=== PATIENT | male | born 1935 | race Caucasian/White ===

== ENCOUNTER 2020-06-04 22:05 | Inpatient (IN) | payer MEDICARE ==
[~2020-06-04] VITALS: Ht 172.7 cm; Wt 73.9 kg
[2020-06-04 22:31] LABS: BASOPHILS % 0.2 % (0.0-1.0); EOSINOPHILS % 0.1 % (0.0-6.0); HEMATOCRIT 37.2 % (38.2-49.6); HEMOGLOBIN 12.1 g/dL (14.0-18.0); LYMPHOCYTES # (AUTO) 1.7 (1.0-3.2); LYMPHOCYTES % 10.9 % (18.0-39.1); MEAN CORPUSCULAR HGB CONC 32.5 g/dL (31-35); MEAN CORPUSCULAR VOLUME 92.3 fL (81-99); MONOCYTES # (AUTO) 1.3 (0.2-0.8); MONOCYTES % 7.8 % (4.4-11.3); NEUTROPHILS # (AUTO) 12.9 (2.1-6.9); NEUTROPHILS % 80.4 % (38.7-80.0); PLATELET COUNT 325 x10e3/uL (140-360); RED BLOOD COUNT 4.03 x10e6/uL (4.3-5.7); RED CELL DISTRIBUTION WIDTH 13.4 % (11.7-14.4)
[2020-06-04] MEDS ORDERED: CEFEPIME HCL 1GM 1 GM in SODIUM CHLORIDE 0.9% 50ML 50 ML IV ONE (22:45)
[2020-06-04 22:48] LABS: CLARITY,URINE SL CLOUDY (CLEAR); COLOR,URINE YELLOW (YELLOW); KETONES,URINE NEGATIVE (NEGATIVE); LEUKOCYTE ESTERASE ,URINE MODERATE (NEGATIVE); NITRITE,URINE POSITIVE (NEGATIVE); PROTEIN,URINE DIPSTICK NEGATIVE (NEGATIVE); URINE UROBILINOGEN 0.2 mg/dL (0.2 - 1)
[2020-06-04 22:51] LABS: ALBUMIN 3.5 g/dL (3.5-5.0); ALBUMIN/GLOBULIN RATIO 1.2 (0.8-2.0); ANION GAP 16.2 mmol/L (8-16); CALCIUM 8.1 mg/dL (8.4-10.2); CREATININE, SERUM 1.71 mg/dL (0.72-1.25); POTASSIUM 4.2 mmol/L (3.5-5.1)
[2020-06-04] MEDS ORDERED: SODIUM CHLORIDE 0.9% 50ML 50 ML ONE ×2 (22:51→23:43)
[2020-06-04] MEDS ORDERED: CEFEPIME HCL 1 GM VIAL ONE (22:51)
[2020-06-04 22:54] LABS: BACTERIA,URINE MODERATE /HPF; EPITHELIAL CELLS,URINE FEW /LPF; WBC,URINE (MAN) 21-50 /HPF (0-5)
[2020-06-04 22:58] LABS: CREATINE KINASE MB 1.7 ng/mL (0-5.0)
[2020-06-04] MEDS ORDERED: ONDANSETRON HCL INJ 2MG/ML 2ML 2 MG/ML VIAL IV STA (23:21)
[2020-06-04] MEDS ORDERED: IOPAMIDOL 370 MG/ML 200 ML INFUS..BTL INJ ONE (23:43)
[2020-06-05] MEDS ORDERED: ONDANSETRON HCL4 MG PO (03:29)
[2020-06-05] MEDS ORDERED: METOPROLOL SUCC25 MG PO (03:29)
[2020-06-05] MEDS ORDERED: LISINOPRIL2.5 MG PO (03:29)
[2020-06-05] MEDS ORDERED: FUROSEMIDE20 MG PO (03:29)
[2020-06-05] MEDS ORDERED: CEFTRIAXONE SOD 1 GM/50 ML BAG IV SCH (08:00)
[2020-06-05] MEDS: CEFTRIAXONE SOD 1 GM in SODIUM CHLORIDE 0.9% 50ML 50 ML IV SCH (08:26)
[2020-06-05 08:43] LABS: BASOPHILS % 0.3 % (0.0-1.0); EOSINOPHILS # (AUTO) 0.1 (0.0-0.4); EOSINOPHILS % 0.6 % (0.0-6.0); HEMATOCRIT 32.8 % (38.2-49.6); HEMOGLOBIN 10.7 g/dL (14.0-18.0); LYMPHOCYTES # (AUTO) 2.5 (1.0-3.2); LYMPHOCYTES % 21.4 % (18.0-39.1); MEAN CORPUSCULAR HGB CONC 32.6 g/dL (31-35); MEAN CORPUSCULAR VOLUME 91.9 fL (81-99); MONOCYTES # (AUTO) 1.6 (0.2-0.8); MONOCYTES % 13.2 % (4.4-11.3); NEUTROPHILS # (AUTO) 7.5 (2.1-6.9); NEUTROPHILS % 64.1 % (38.7-80.0); PLATELET COUNT 262 x10e3/uL (140-360); RED BLOOD COUNT 3.57 x10e6/uL (4.3-5.7); RED CELL DISTRIBUTION WIDTH 13.4 % (11.7-14.4)
[2020-06-05 09:03] LABS: CALCIUM 8.2 mg/dL (8.4-10.2); CREATININE, SERUM 1.33 mg/dL (0.72-1.25)
[2020-06-05 10:30] LABS: FERRITIN 107.13 ng/mL (21.81-274.66)
[2020-06-05 13:00] VITALS: BP 111/61
[2020-06-05 13:37] VITALS: BP 111/67
[2020-06-05] MEDS ORDERED: HYDRALAZINE HCL 20 MG/ML VIAL IV PRN (14:45)
[2020-06-05] MEDS ORDERED: ACETAMINOPHEN 325 MG TAB PO PRN (14:45)
[2020-06-05] MEDS ORDERED: ONDANSETRON HCL INJ 2MG/ML 2ML 2 MG/ML VIAL IV PRN (14:45)
[2020-06-05 16:38] VITALS: BP 145/65
[2020-06-05] MEDS ORDERED: IRON SUCROSE 100 MG in SODIUM CHLORIDE 0.9% 100 ML 100 ML IV ONE (18:00)
[2020-06-05] MEDS: SODIUM CHLORIDE 0.9% 1000ML 1,000 ML IV SCH (18:15)
[2020-06-05 19:43] VITALS: BP 123/86
[2020-06-05 19:48] VITALS: BP 123/86
[2020-06-05] MEDS ORDERED: ASPIRIN CHEW81 MG PO (20:13)
[2020-06-06] VITALS (8 sets, daily range): BP systolic 102–115; BP diastolic 46–82
[2020-06-06] MEDS: SODIUM CHLORIDE 0.9% 1000ML 1,000 ML IV SCH ×2 (02:51→13:55)
[2020-06-06 05:07] LABS: BASOPHILS % 0.6 % (0.0-1.0); EOSINOPHILS # (AUTO) 0.2 (0.0-0.4); EOSINOPHILS % 3.1 % (0.0-6.0); HEMATOCRIT 29.9 % (38.2-49.6); HEMOGLOBIN 9.6 g/dL (14.0-18.0); LYMPHOCYTES % 28.9 % (18.0-39.1); MEAN CORPUSCULAR HEMOGLOBIN 30.5 pg (28-32); MEAN CORPUSCULAR HGB CONC 32.1 g/dL (31-35); MEAN CORPUSCULAR VOLUME 94.9 fL (81-99); MONOCYTES % 13.6 % (4.4-11.3); NEUTROPHILS # (AUTO) 3.8 (2.1-6.9); NEUTROPHILS % 53.4 % (38.7-80.0); PLATELET COUNT 243 x10e3/uL (140-360); RED BLOOD COUNT 3.15 x10e6/uL (4.3-5.7); RED CELL DISTRIBUTION WIDTH 13.6 % (11.7-14.4)
[2020-06-06 05:29] LABS: ALANINE AMINOTRANSFERASE 12 IU/L (0-55); ALBUMIN 2.7 g/dL (3.5-5.0); ALKALINE PHOSPHATASE 41 IU/L (40-150); ANION GAP 11.2 mmol/L (8-16); BLOOD UREA NITROGEN 46 mg/dL (7-26); BUN/CREATININE RATIO 40 (6-25); CARBON DIOXIDE 24 mmol/L (22-29); CHLORIDE 110 mmol/L (98-107); CREATININE, SERUM 1.14 mg/dL (0.72-1.25); EST GLOMERULAR FILTRATION RATE > 60 ML/MIN (60-); GLUCOSE 98 mg/dL (74-118); POTASSIUM 4.2 mmol/L (3.5-5.1); SODIUM 141 mmol/L (136-145)
[2020-06-06] MEDS ORDERED: CEFTRIAXONE SOD 1 GM VIAL ONE (08:30)
[2020-06-06] MEDS: CEFTRIAXONE SOD 1 GM in SODIUM CHLORIDE 0.9% 50ML 50 ML IV SCH (08:31)
[2020-06-06] MEDS: METOPROLOL SUCCINATE 25 MG TAB XL PO SCH (08:31)
[2020-06-06] MEDS ORDERED: SODIUM CHLORIDE 0.9% 50ML 50 ML ONE (08:31)
[2020-06-06] MEDS ORDERED: FAMOTIDINE 20 MG TAB PO SCH ×2 (09:00→21:00)
[2020-06-06] MEDS ORDERED: ALBUTEROL/IPRATROPIUM 3 ML NEB NEB PRN (10:15)
[2020-06-06] MEDS: BENZONATATE 100 MG CAP PO PRN ×2 (10:30→15:27)
[2020-06-06] MEDS ORDERED: ONDANSETRON HCL 4 MG ORAL DISINTEGRATING TAB PO PRN (10:30)
[2020-06-06] MEDS: PANTOPRAZOLE SOD 40 MG TABEC PO SCH (16:21)
[2020-06-06] MEDS: CARBAMIDE PEROXIDE 15 ML BTL OT SCH (21:00)
[2020-06-07] VITALS: BP 103/59
[2020-06-07 04:00] VITALS: BP 111/68
[2020-06-07] MEDS: PANTOPRAZOLE SOD 40 MG TABEC PO SCH ×2 (08:30→16:30)
[2020-06-07] MEDS ORDERED: CEFTRIAXONE SOD 1 GM VIAL ONE (08:40)
[2020-06-07] MEDS ORDERED: SODIUM CHLORIDE 0.9% 50ML 50 ML ONE (08:43)
[2020-06-07] MEDS: CEFTRIAXONE SOD 1 GM in SODIUM CHLORIDE 0.9% 50ML 50 ML IV SCH (08:45)
[2020-06-07] MEDS: METOPROLOL SUCCINATE 25 MG TAB XL PO SCH (09:00)
[2020-06-07] MEDS: CARBAMIDE PEROXIDE 15 ML BTL OT SCH ×2 (09:00→13:00)
[2020-06-07] MEDS ORDERED: SODIUM CHLORIDE 0.9% 100 ML ONE (09:41)
[2020-06-07 09:59] VITALS: BP 119/67
[2020-06-07 14:29] VITALS: BP 119/67
[2020-06-07 14:42] VITALS: BP 125/68
[2020-06-07] MEDS ORDERED: FAMOTIDINE20 MG PO (14:49)
[2020-06-07] MEDS ORDERED: CIPRO500 MG PO (14:49)
[2020-06-07] MEDS ORDERED: EAR DROPS15 ML OT (14:49)
[2020-06-07 16:38] VITALS: BP 125/70
== END 2020-06-07 17:14 | disposition home or self-care (01) | DRG 872 ==
LOC: ER 22:10 → ERHOLD 06-05 02:18 → MED/SURG 06-05 12:12 → OBSVTOIN 06-06 11:39
PROVIDERS: ADMIT Internal Medicine; ATTEND Internal Medicine
PROC: 0CJS8ZZ Inspection of Larynx, Via Natural or Artificial Opening Endoscopic (ICD-10-PCS; principal; 2020-06-06)
DX: A41.9 Sepsis, unspecified organism (principal); N39.0 Urinary tract infection, site not specified; N17.9 Acute kidney failure, unspecified; E87.1 Hypo-osmolality and hyponatremia; K92.2 Gastrointestinal hemorrhage, unspecified; I10 Essential (primary) hypertension; I25.10 Atherosclerotic heart disease of native coronary artery without angina pectoris; D64.9 Anemia, unspecified; K21.9 Gastro-esophageal reflux disease without esophagitis; H61.20 Impacted cerumen, unspecified ear; B96.20 Unspecified Escherichia coli [E. coli] as the cause of diseases classified elsewhere; B96.89 Other specified bacterial agents as the cause of diseases classified elsewhere; Z20.822 Contact with and (suspected) exposure to COVID-19
CPT/HCPCS: 36415; 51700; 71045; 74177; 80048; 80053; 81001; 82550; 82553; 82607; 82728; 82746; 83540; 83605; 83690; 84466; 84484; 85025; 87040; 87086; 87186; 99284; G0378; J0692; J0696; J1756; J2405; J7030; J7050; Q9967; U0002

== ENCOUNTER 2021-04-18 03:28 | Emergency (ER) | payer MEDICARE ==
[~2021-04-18] VITALS: Ht 172.7 cm; Wt 73.9 kg
[~2021-04-18 03:28] MED LIST: ASPIRIN CHEW81 MG PO; CIPRO500 MG PO; EAR DROPS15 ML OT; FAMOTIDINE20 MG PO; FUROSEMIDE20 MG PO; LISINOPRIL2.5 MG PO; METOPROLOL SUCC25 MG PO; ONDANSETRON HCL4 MG PO
== END 2021-04-18 04:00 | disposition home or self-care (01) ==
LOC: ER 03:31
DX: Z46.6 Encounter for fitting and adjustment of urinary device (principal); I10 Essential (primary) hypertension; I25.10 Atherosclerotic heart disease of native coronary artery without angina pectoris; D64.9 Anemia, unspecified; Z86.718 Personal history of other venous thrombosis and embolism
CPT/HCPCS: 99282

== ENCOUNTER 2021-11-10 12:23 | Emergency (ER) | payer MEDICARE ==
[~2021-11-10] VITALS: Ht 172.7 cm; Wt 73.9 kg
[2021-11-10] MEDS ORDERED: ONDANSETRON HCL INJ 2MG/ML 2ML 2 MG/ML VIAL IV STA (12:50)
[2021-11-10] MEDS ORDERED: SODIUM CHLORIDE 0.9% 1000ML 1,000 ML IV STA ×2 (12:50→16:46)
[2021-11-10 13:11] LABS: BASOPHILS % 0.2 % (0.0-1.0); HEMATOCRIT 34.7 % (38.2-49.6); HEMOGLOBIN 10.6 g/dL (14.0-18.0); LYMPHOCYTES # (AUTO) 1.3 (1.0-3.2); LYMPHOCYTES % 8.2 % (18.0-39.1); MEAN CORPUSCULAR HEMOGLOBIN 26.3 pg (28-32); MEAN CORPUSCULAR HGB CONC 30.5 g/dL (31-35); MEAN CORPUSCULAR VOLUME 86.1 fL (81-99); MONOCYTES # (AUTO) 1.2 (0.2-0.8); MONOCYTES % 7.9 % (4.4-11.3); NEUTROPHILS # (AUTO) 12.7 (2.1-6.9); NEUTROPHILS % 83.1 % (38.7-80.0); PLATELET COUNT 282 x10e3/uL (140-360); RED BLOOD COUNT 4.03 x10e6/uL (4.3-5.7); RED CELL DISTRIBUTION WIDTH 14.8 % (11.7-14.4)
[2021-11-10] MEDS ORDERED: DIGOXIN INJ 0.25 MG/ML 2 ML AMP IV STA (13:27)
[2021-11-10] MEDS ORDERED: METOPROLOL TARTRATE INJ 1 MG/ML VIAL IV STA ×2 (13:27→16:55)
[2021-11-10] MEDS ORDERED: DILTIAZEM HCL 5 MG/ML 5 ML VIAL IV STA (13:27)
[2021-11-10 13:38] LABS: ALBUMIN 3.8 g/dL (3.5-5.0); ANION GAP 17.6 mmol/L (8-16); CALCIUM 10.1 mg/dL (8.4-10.2); CREATININE, SERUM 1.56 mg/dL (0.72-1.25); POTASSIUM 4.6 mmol/L (3.5-5.1)
[2021-11-10] MEDS ORDERED: PROMETHAZINE 25MG/ NS 50ML (IV) IV STA (13:43)
[2021-11-10] MEDS ORDERED: SODIUM CHLORIDE 0.9% 0 ML ONE (13:57)
[2021-11-10] MEDS ORDERED: IOPAMIDOL 370 MG/ML 100 ML INFUS..BTL INJ ONE (13:57)
[2021-11-10 14:12] LABS: CLARITY,URINE SL CLOUDY (CLEAR); COLOR,URINE YELLOW (YELLOW)
[2021-11-10 14:13] LABS: KETONES,URINE NEGATIVE (NEGATIVE); LEUKOCYTE ESTERASE ,URINE LARGE (NEGATIVE); NITRITE,URINE POSITIVE (NEGATIVE); PROTEIN,URINE DIPSTICK 2+ (NEGATIVE); URINE UROBILINOGEN 0.2 mg/dL (0.2 - 1)
[2021-11-10 14:25] LABS: BACTERIA,URINE MANY /HPF
[2021-11-10 14:26] LABS: RBC,URINE 0-5 /HPF (0-5)
[2021-11-10 14:29] LABS: TRIPLE PHOSPHATE CRYSTAL,UR RARE (FEW)
[2021-11-10] MEDS ORDERED: GADOBENATE DIMEGLUMINE 0 ML IV ONE (15:02)
[2021-11-10] MEDS ORDERED: METOPROLOL TARTRATE INJ 1 MG/ML VIAL IV PRN (15:15)
[2021-11-10] MEDS ORDERED: SODIUM CHLORIDE 0.9% 1000ML 1,000 ML IV SCH (15:15)
[2021-11-10] MEDS ORDERED: LORAZEPAM INJ 2 MG/ML VIAL IV PRN (15:15)
[2021-11-10] MEDS ORDERED: ONDANSETRON HCL INJ 2MG/ML 2ML 2 MG/ML VIAL IV PRN (15:15)
[2021-11-10 15:39] LABS: % IRON SATURATION 31 % (15-50); IRON 119 ug/dL (65-175); TOTAL IRON BINDING CAPACITY 389 ug/dL (261-478); TRANSFERRIN 278 mg/dL (174-364)
[2021-11-10] MEDS ORDERED: FENTANYL CITRATE/PF 100MCG/2 ML INJ IV ONE ×2 (18:15)
[2021-11-10] MEDS ORDERED: FENTANYL CITRATE/PF 100MCG/2 ML INJ ONE (18:24)
[2021-11-10] MEDS ORDERED: ACETAMINOPHEN 325 MG TAB PO ONE (19:00)
== END 2021-11-10 19:07 | disposition other institution (70) ==
LOC: ER 12:28
DX: R41.82 Altered mental status, unspecified (principal); A41.9 Sepsis, unspecified organism; N39.0 Urinary tract infection, site not specified; R10.13 Epigastric pain; D64.9 Anemia, unspecified; I10 Essential (primary) hypertension; I25.10 Atherosclerotic heart disease of native coronary artery without angina pectoris; Z20.822 Contact with and (suspected) exposure to COVID-19; R94.31 Abnormal electrocardiogram [ECG] [EKG]; Z86.718 Personal history of other venous thrombosis and embolism
CPT/HCPCS: 36415; 70450; 71045; 74174; 80053; 81001; 83540; 83605; 83690; 83880; 84466; 85025; 87040; 87086; 87186; 93005; 99284; C9113; J1160; J2405; J2543; J2550; J3010; J7030; Q9967; U0002; J7050

== ENCOUNTER 2022-03-20 14:56 | Inpatient (IN) | payer MEDICARE ==
[~2022-03-20] VITALS: Ht 172.7 cm; Wt 73.9 kg
[2022-03-20] MEDS ORDERED: ONDANSETRON HCL INJ 2MG/ML 2ML 2 MG/ML VIAL IV PRN (17:45)
[2022-03-20] MEDS ORDERED: Morphine 4mg INJECTION 4 MG/ML INJ IV PRN (17:45)
[2022-03-20 17:51] LABS: BASOPHILS # (AUTO) 0.1 (0.0-0.1); BASOPHILS % 0.2 % (0.0-1.0); HEMATOCRIT 40.9 % (38.2-49.6); HEMOGLOBIN 12.1 g/dL (14.0-18.0); LYMPHOCYTES # (AUTO) 1.1 (1.0-3.2); LYMPHOCYTES % 5.2 % (18.0-39.1); MEAN CORPUSCULAR HEMOGLOBIN 29.1 pg (28-32); MEAN CORPUSCULAR HGB CONC 29.6 g/dL (31-35); MEAN CORPUSCULAR VOLUME 98.3 fL (81-99); MONOCYTES # (AUTO) 1.4 (0.2-0.8); MONOCYTES % 6.5 % (4.4-11.3); NEUTROPHILS # (AUTO) 18.7 (2.1-6.9); NEUTROPHILS % 87.4 % (38.7-80.0); PLATELET COUNT 233 x10e3/uL (140-360); RED BLOOD COUNT 4.16 x10e6/uL (4.3-5.7); RED CELL DISTRIBUTION WIDTH 14.7 % (11.7-14.4)
[2022-03-20 17:56] LABS: CLARITY,URINE CLOUDY (CLEAR); COLOR,URINE ORANGE (YELLOW); LEUKOCYTE ESTERASE ,URINE LARGE (NEGATIVE); NITRITE,URINE NEGATIVE (NEGATIVE)
[2022-03-20 17:57] LABS: KETONES,URINE NEGATIVE (NEGATIVE); PROTEIN,URINE DIPSTICK 2+ (NEGATIVE); URINE UROBILINOGEN 0.2 mg/dL (0.2 - 1)
[2022-03-20 18:00] LABS: WBC,URINE (MAN) >50 /HPF (0-5)
[2022-03-20 18:01] LABS: BACTERIA,URINE MANY /HPF; EPITHELIAL CELLS,URINE RARE /LPF; RBC,URINE >50 /HPF (0-5)
[2022-03-20 18:11] LABS: ALBUMIN 3.3 g/dL (3.5-5.0); ALBUMIN/GLOBULIN RATIO 0.8 (0.8-2.0); ANION GAP 16.7 mmol/L (8-16); CALCIUM 9.3 mg/dL (8.4-10.2); CREATININE, SERUM 1.43 mg/dL (0.72-1.25); POTASSIUM 4.7 mmol/L (3.5-5.1)
[2022-03-20] MEDS ORDERED: SODIUM CHLORIDE 0.9% 1000ML 1,000 ML IV ONE (18:30)
[2022-03-20 20:30] VITALS: BP 112/67
[2022-03-20 22:11] VITALS: BP 112/67
[2022-03-20 22:45] VITALS: BP 112/67
[2022-03-21] VITALS (7 sets, daily range): BP systolic 101–129; BP diastolic 62–80
[2022-03-21] MEDS: SODIUM CHLORIDE 0.9% 1000ML 1,000 ML IV SCH ×2 (00:32→08:44)
[2022-03-21 06:43] LABS: BASOPHILS % 0.3 % (0.0-1.0); EOSINOPHILS # (AUTO) 0.2 (0.0-0.4); EOSINOPHILS % 1.5 % (0.0-6.0); HEMATOCRIT 33.3 % (38.2-49.6); HEMOGLOBIN 10.1 g/dL (14.0-18.0); LYMPHOCYTES # (AUTO) 1.5 (1.0-3.2); LYMPHOCYTES % 12.4 % (18.0-39.1); MEAN CORPUSCULAR HEMOGLOBIN 29.4 pg (28-32); MEAN CORPUSCULAR HGB CONC 30.3 g/dL (31-35); MEAN CORPUSCULAR VOLUME 97.1 fL (81-99); MONOCYTES # (AUTO) 1.2 (0.2-0.8); MONOCYTES % 9.9 % (4.4-11.3); NEUTROPHILS % 75.6 % (38.7-80.0); PLATELET COUNT 186 x10e3/uL (140-360); RED BLOOD COUNT 3.43 x10e6/uL (4.3-5.7); RED CELL DISTRIBUTION WIDTH 14.6 % (11.7-14.4)
[2022-03-21 06:59] LABS: ANION GAP 13.5 mmol/L (8-16); CALCIUM 8.2 mg/dL (8.4-10.2); CREATININE, SERUM 1.11 mg/dL (0.72-1.25); POTASSIUM 3.5 mmol/L (3.5-5.1)
[2022-03-21] MEDS ORDERED: ACETAMINOPHEN 325 MG TAB PO PRN (09:30)
[2022-03-21] MEDS ORDERED: CARVEDILOL3.125 MG PO (11:03)
[2022-03-21] MEDS ORDERED: OMEPRAZOLE40 MG PO (11:05)
[2022-03-21] MEDS ORDERED: OMEPRAZOLE20 M2 (11:05)
[2022-03-21] MEDS ORDERED: POTASSIUM CHLO10 ME1 PO (11:06)
[2022-03-21] MEDS ORDERED: GLUCOSAMINE &1 EACH PO (11:19)
[2022-03-21] MEDS ORDERED: REFRESH RELIEVA10 ML OU (11:21)
[2022-03-21] MEDS: ARTIFICIAL TEARS (OPTH) 15 ML BTL OU SCH ×2 (15:00→21:36)
[2022-03-21] MEDS: ALBUTEROL/IPRATROPIUM 3 ML NEB NEB PRN (15:04)
[2022-03-21] MEDS: CARVEDILOL 3.125 MG TAB PO SCH (17:12)
[2022-03-21] MEDS: FAMOTIDINE 20 MG TAB PO SCH (21:37)
[2022-03-22] VITALS (7 sets, daily range): BP systolic 115–146; BP diastolic 59–84
[2022-03-22 06:46] LABS: BASOPHILS # (AUTO) 0.1 (0.0-0.1); BASOPHILS % 0.6 % (0.0-1.0); EOSINOPHILS # (AUTO) 0.4 (0.0-0.4); HEMATOCRIT 32.2 % (38.2-49.6); HEMOGLOBIN 10.2 g/dL (14.0-18.0); LYMPHOCYTES # (AUTO) 1.2 (1.0-3.2); LYMPHOCYTES % 10.9 % (18.0-39.1); MEAN CORPUSCULAR HEMOGLOBIN 29.6 pg (28-32); MEAN CORPUSCULAR HGB CONC 31.7 g/dL (31-35); MEAN CORPUSCULAR VOLUME 93.3 fL (81-99); MONOCYTES # (AUTO) 1.2 (0.2-0.8); MONOCYTES % 10.9 % (4.4-11.3); NEUTROPHILS % 73.2 % (38.7-80.0); PLATELET COUNT 186 x10e3/uL (140-360); RED BLOOD COUNT 3.45 x10e6/uL (4.3-5.7); RED CELL DISTRIBUTION WIDTH 15.1 % (11.7-14.4)
[2022-03-22 07:19] LABS: ALBUMIN 2.5 g/dL (3.5-5.0); ALBUMIN/GLOBULIN RATIO 0.6 (0.8-2.0); ANION GAP 11.8 mmol/L (8-16); CALCIUM 8.3 mg/dL (8.4-10.2); CREATININE, SERUM 1.02 mg/dL (0.72-1.25); POTASSIUM 3.8 mmol/L (3.5-5.1)
[2022-03-22] MEDS: FUROSEMIDE 20 MG TAB PO SCH (08:55)
[2022-03-22] MEDS: ARTIFICIAL TEARS (OPTH) 15 ML BTL OU SCH ×3 (08:56→21:18)
[2022-03-22] MEDS: GLUCOSAMINE PO SCH (08:56)
[2022-03-22] MEDS: CHONDROITIN PO SCH (08:56)
[2022-03-22] MEDS: CARVEDILOL 3.125 MG TAB PO SCH ×2 (08:56→17:32)
[2022-03-22] MEDS ORDERED: METOPROLOL SUCCINATE 25 MG TAB XL PO SCH (09:00)
[2022-03-22] MEDS ORDERED: LINEZOLID 600 MG TAB PO ONE (10:30)
[2022-03-22] MEDS: FAMOTIDINE 20 MG TAB PO SCH (21:19)
[2022-03-23] VITALS (9 sets, daily range): BP systolic 91–126; BP diastolic 57–74
[2022-03-23] MEDS: ALBUTEROL/IPRATROPIUM 3 ML NEB NEB PRN ×3 (04:55→12:45)
[2022-03-23 05:41] LABS: BASOPHILS # (AUTO) 0.1 (0.0-0.1); BASOPHILS % 0.6 % (0.0-1.0); EOSINOPHILS # (AUTO) 0.7 (0.0-0.4); EOSINOPHILS % 7.2 % (0.0-6.0); HEMATOCRIT 31.8 % (38.2-49.6); HEMOGLOBIN 10.4 g/dL (14.0-18.0); LYMPHOCYTES # (AUTO) 1.9 (1.0-3.2); MEAN CORPUSCULAR HGB CONC 32.7 g/dL (31-35); MEAN CORPUSCULAR VOLUME 91.6 fL (81-99); MONOCYTES # (AUTO) 1.2 (0.2-0.8); MONOCYTES % 12.8 % (4.4-11.3); NEUTROPHILS # (AUTO) 5.3 (2.1-6.9); NEUTROPHILS % 58.1 % (38.7-80.0); PLATELET COUNT 197 x10e3/uL (140-360); RED BLOOD COUNT 3.47 x10e6/uL (4.3-5.7); RED CELL DISTRIBUTION WIDTH 14.7 % (11.7-14.4)
[2022-03-23 06:07] LABS: ANION GAP 14.5 mmol/L (8-16); CALCIUM 8.4 mg/dL (8.4-10.2); CREATININE, SERUM 0.97 mg/dL (0.72-1.25); POTASSIUM 3.5 mmol/L (3.5-5.1)
[2022-03-23] MEDS: POTASSIUM CHLORIDE 10MEQ EA PO SCH (08:34)
[2022-03-23] MEDS: FUROSEMIDE 20 MG TAB PO SCH (08:34)
[2022-03-23] MEDS: PANTOPRAZOLE SOD 40 MG TABEC PO SCH (08:34)
[2022-03-23] MEDS: CARVEDILOL 3.125 MG TAB PO SCH ×2 (08:34→17:18)
[2022-03-23] MEDS: ARTIFICIAL TEARS (OPTH) 15 ML BTL OU SCH ×3 (08:35→20:43)
[2022-03-23] MEDS: GLUCOSAMINE PO SCH (08:37)
[2022-03-23] MEDS: CHONDROITIN PO SCH (08:37)
[2022-03-23] MEDS: LINEZOLID 600 MG TAB PO SCH ×2 (12:00→20:43)
[2022-03-23] MEDS ORDERED: ONDANSETRON HCL 4 MG ORAL DISINTEGRATING TAB PO PRN (13:45)
[2022-03-23] MEDS: FAMOTIDINE 20 MG TAB PO SCH (20:43)
[2022-03-24] VITALS (9 sets, daily range): BP systolic 104–125; BP diastolic 49–81
[2022-03-24] MEDS: ALBUTEROL/IPRATROPIUM 3 ML NEB NEB PRN ×2 (02:10→19:20)
[2022-03-24] MEDS: LINEZOLID 600 MG TAB PO SCH ×2 (08:28→20:45)
[2022-03-24] MEDS: PANTOPRAZOLE SOD 40 MG TABEC PO SCH (08:28)
[2022-03-24] MEDS: POTASSIUM CHLORIDE 10MEQ EA PO SCH (08:28)
[2022-03-24] MEDS: ARTIFICIAL TEARS (OPTH) 15 ML BTL OU SCH ×3 (08:29→20:45)
[2022-03-24] MEDS: CARVEDILOL 3.125 MG TAB PO SCH ×2 (08:29→16:02)
[2022-03-24] MEDS: FUROSEMIDE 40 MG TAB PO SCH (08:29)
[2022-03-24] MEDS: CHONDROITIN PO SCH (08:30)
[2022-03-24] MEDS: GLUCOSAMINE PO SCH (08:30)
[2022-03-24] MEDS: FAMOTIDINE 20 MG TAB PO SCH (20:45)
[2022-03-25] MEDS: ALBUTEROL/IPRATROPIUM 3 ML NEB NEB PRN ×4 (01:00→18:55)
[2022-03-25 04:00] VITALS: BP 111/66
[2022-03-25 05:52] LABS: BASOPHILS % 0.6 % (0.0-1.0); EOSINOPHILS # (AUTO) 0.8 (0.0-0.4); EOSINOPHILS % 11.8 % (0.0-6.0); HEMATOCRIT 33.2 % (38.2-49.6); HEMOGLOBIN 10.1 g/dL (14.0-18.0); LYMPHOCYTES # (AUTO) 1.8 (1.0-3.2); LYMPHOCYTES % 25.7 % (18.0-39.1); MEAN CORPUSCULAR HGB CONC 30.4 g/dL (31-35); MEAN CORPUSCULAR VOLUME 95.4 fL (81-99); MONOCYTES # (AUTO) 0.9 (0.2-0.8); NEUTROPHILS # (AUTO) 3.4 (2.1-6.9); NEUTROPHILS % 48.6 % (38.7-80.0); PLATELET COUNT 204 x10e3/uL (140-360); RED BLOOD COUNT 3.48 x10e6/uL (4.3-5.7); RED CELL DISTRIBUTION WIDTH 14.6 % (11.7-14.4)
[2022-03-25 06:21] LABS: ANION GAP 12.7 mmol/L (8-16); CALCIUM 8.2 mg/dL (8.4-10.2); CREATININE, SERUM 1.16 mg/dL (0.72-1.25); POTASSIUM 3.7 mmol/L (3.5-5.1)
[2022-03-25 08:08] VITALS: BP 115/70
[2022-03-25 09:00] VITALS: BP 115/70
[2022-03-25] MEDS: PANTOPRAZOLE SOD 40 MG TABEC PO SCH (09:00)
[2022-03-25] MEDS: CHONDROITIN PO SCH (09:00)
[2022-03-25] MEDS: FUROSEMIDE 40 MG TAB PO SCH (09:00)
[2022-03-25] MEDS: GLUCOSAMINE PO SCH (09:00)
[2022-03-25] MEDS: LINEZOLID 600 MG TAB PO SCH ×2 (09:00→21:56)
[2022-03-25] MEDS: POTASSIUM CHLORIDE 10MEQ EA PO SCH (09:00)
[2022-03-25] MEDS: CARVEDILOL 3.125 MG TAB PO SCH ×2 (09:00→16:33)
[2022-03-25] MEDS: ARTIFICIAL TEARS (OPTH) 15 ML BTL OU SCH ×3 (09:33→21:56)
[2022-03-25 11:50] VITALS: BP 104/63
[2022-03-25 16:03] VITALS: BP 109/61
[2022-03-25 20:00] VITALS: BP 135/68
[2022-03-25] MEDS: FAMOTIDINE 20 MG TAB PO SCH (21:56)
[2022-03-26] VITALS (8 sets, daily range): BP systolic 106–137; BP diastolic 69–92
[2022-03-26] MEDS: ALBUTEROL/IPRATROPIUM 3 ML NEB NEB PRN ×4 (00:40→19:35)
[2022-03-26] MEDS: CHONDROITIN PO SCH (09:00)
[2022-03-26] MEDS: GLUCOSAMINE PO SCH (09:00)
[2022-03-26] MEDS: POTASSIUM CHLORIDE 10MEQ EA PO SCH (09:12)
[2022-03-26] MEDS: FUROSEMIDE 40 MG TAB PO SCH (09:12)
[2022-03-26] MEDS: LINEZOLID 600 MG TAB PO SCH (09:12)
[2022-03-26] MEDS: PANTOPRAZOLE SOD 40 MG TABEC PO SCH (09:12)
[2022-03-26] MEDS: CARVEDILOL 3.125 MG TAB PO SCH ×2 (09:12→17:00)
[2022-03-26] MEDS: ARTIFICIAL TEARS (OPTH) 15 ML BTL OU SCH ×3 (09:13→21:42)
[2022-03-26] MEDS: AMOXICILLIN 250 MG CAP PO SCH ×2 (14:49→21:43)
[2022-03-26] MEDS: FAMOTIDINE 20 MG TAB PO SCH (21:42)
[2022-03-27] VITALS (7 sets, daily range): BP systolic 107–136; BP diastolic 55–84
[2022-03-27] MEDS: AMOXICILLIN 250 MG CAP PO SCH ×3 (06:00→20:13)
[2022-03-27] MEDS: ALBUTEROL/IPRATROPIUM 3 ML NEB NEB PRN ×2 (06:40→18:50)
[2022-03-27] MEDS: ARTIFICIAL TEARS (OPTH) 15 ML BTL OU SCH ×3 (09:00→20:24)
[2022-03-27] MEDS: FUROSEMIDE 40 MG TAB PO SCH (09:00)
[2022-03-27] MEDS: CARVEDILOL 3.125 MG TAB PO SCH ×2 (09:00→16:11)
[2022-03-27] MEDS: CHONDROITIN PO SCH (09:00)
[2022-03-27] MEDS: GLUCOSAMINE PO SCH (09:00)
[2022-03-27] MEDS: POTASSIUM CHLORIDE 10MEQ EA PO SCH (09:00)
[2022-03-27] MEDS: PANTOPRAZOLE SOD 40 MG TABEC PO SCH (09:00)
[2022-03-27] MEDS ORDERED: SUGAMMADEX SODIUM 200 MG/2 ML VIAL IV ONE (12:06)
[2022-03-27] MEDS ORDERED: IOPAMIDOL 610MG/1ML 300 MG/ML VIAL IV ONE (12:19)
[2022-03-27] MEDS ORDERED: LIDOCAINE 2%/ EPINEPHRINE 20ML MDV ONE (12:56)
[2022-03-27] MEDS ORDERED: BUPIVACAINE HCL 0.5% INJ 30 ML VIAL INJ ONE (12:57)
[2022-03-27] MEDS ORDERED: DEXAMETHASONE SOD PHOS INJ 4 MG/ML SDV ONE (13:01)
[2022-03-27] MEDS ORDERED: METOCLOPRAMIDE HCL 10 MG/2ML VIAL ONE (13:01)
[2022-03-27] MEDS ORDERED: ETOMIDATE 2 MG/ML 10 ML INJ IV ONE (13:01)
[2022-03-27] MEDS ORDERED: LIDOCAINE HCL 2% LOCAL INJ 5 ML SDV VIAL INJ ONE (13:01)
[2022-03-27] MEDS ORDERED: SEVOFLURANE INHAL SOLN 250 ML PEN BTL ONE (13:01)
[2022-03-27] MEDS ORDERED: ROCURONIUM BROMIDE 10 MG/ML 5ML VIAL IV ONE (13:01)
[2022-03-27] MEDS ORDERED: ONDANSETRON HCL INJ 2MG/ML 2ML 2 MG/ML VIAL ONE (13:01)
[2022-03-27] MEDS ORDERED: POVIDONE IODINE 0.05% 0.05 % ML PO ONE (13:01)
[2022-03-27] MEDS ORDERED: MIDAZOLAM HCL 2 MG/2 ML VIAL ONE (13:18)
[2022-03-27] MEDS ORDERED: FENTANYL CITRATE/PF 100MCG/2 ML INJ ONE (13:18)
[2022-03-27] MEDS ORDERED: PHENAZOPYRIDINE HCL 100 MG TAB PO PRN (14:15)
[2022-03-27] MEDS ORDERED: ACETAMINOPHEN/CODEINE 300MG - 30MG TAB PO PRN (14:15)
[2022-03-27] MEDS: FAMOTIDINE 20 MG TAB PO SCH (20:13)
[2022-03-28] MEDS: AMOXICILLIN 250 MG CAP PO SCH ×3 (05:19→20:31)
[2022-03-28 05:22] LABS: BASOPHILS % 0.1 % (0.0-1.0); EOSINOPHILS % 0.1 % (0.0-6.0); HEMATOCRIT 37.5 % (38.2-49.6); HEMOGLOBIN 11.1 g/dL (14.0-18.0); LYMPHOCYTES % 12.7 % (18.0-39.1); MEAN CORPUSCULAR HGB CONC 29.6 g/dL (31-35); MEAN CORPUSCULAR VOLUME 97.9 fL (81-99); MONOCYTES # (AUTO) 0.6 (0.2-0.8); MONOCYTES % 7.7 % (4.4-11.3); NEUTROPHILS # (AUTO) 6.2 (2.1-6.9); NEUTROPHILS % 79.1 % (38.7-80.0); PLATELET COUNT 239 x10e3/uL (140-360); RED BLOOD COUNT 3.83 x10e6/uL (4.3-5.7); RED CELL DISTRIBUTION WIDTH 13.9 % (11.7-14.4)
[2022-03-28 05:27] VITALS: BP 128/90
[2022-03-28 05:46] LABS: ANION GAP 14.5 mmol/L (8-16); CALCIUM 8.8 mg/dL (8.4-10.2); CREATININE, SERUM 1.15 mg/dL (0.72-1.25); POTASSIUM 4.5 mmol/L (3.5-5.1)
[2022-03-28] MEDS: ALBUTEROL/IPRATROPIUM 3 ML NEB NEB PRN ×2 (07:30→19:35)
[2022-03-28 08:05] VITALS: BP 123/70
[2022-03-28] MEDS: CHONDROITIN PO SCH (09:00)
[2022-03-28] MEDS: GLUCOSAMINE PO SCH (09:00)
[2022-03-28] MEDS: PANTOPRAZOLE SOD 40 MG TABEC PO SCH (09:18)
[2022-03-28] MEDS: POTASSIUM CHLORIDE 10MEQ EA PO SCH (09:19)
[2022-03-28] MEDS: ARTIFICIAL TEARS (OPTH) 15 ML BTL OU SCH ×3 (09:19→20:31)
[2022-03-28] MEDS: CARVEDILOL 3.125 MG TAB PO SCH ×2 (09:19→17:00)
[2022-03-28] MEDS: FUROSEMIDE 40 MG TAB PO SCH (09:19)
[2022-03-28 10:25] VITALS: BP 123/70
[2022-03-28 12:00] VITALS: BP 103/62
[2022-03-28 16:27] VITALS: BP 112/83
[2022-03-28 20:00] VITALS: BP 136/74
[2022-03-28] MEDS: FAMOTIDINE 20 MG TAB PO SCH (20:31)
[2022-03-29] VITALS (7 sets, daily range): BP systolic 110–128; BP diastolic 64–77
[2022-03-29] MEDS: ALBUTEROL/IPRATROPIUM 3 ML NEB NEB PRN ×4 (02:25→19:25)
[2022-03-29] MEDS: AMOXICILLIN 250 MG CAP PO SCH ×3 (05:09→22:00)
[2022-03-29] MEDS: CHONDROITIN PO SCH (09:00)
[2022-03-29] MEDS: GLUCOSAMINE PO SCH (09:00)
[2022-03-29] MEDS: ARTIFICIAL TEARS (OPTH) 15 ML BTL OU SCH ×3 (09:00→20:32)
[2022-03-29] MEDS: POTASSIUM CHLORIDE 10MEQ EA PO SCH (09:00)
[2022-03-29] MEDS: PANTOPRAZOLE SOD 40 MG TABEC PO SCH (09:00)
[2022-03-29] MEDS: CARVEDILOL 3.125 MG TAB PO SCH ×2 (09:00→17:00)
[2022-03-29] MEDS: FUROSEMIDE 40 MG TAB PO SCH (09:00)
[2022-03-29] MEDS: FAMOTIDINE 20 MG TAB PO SCH (20:32)
[2022-03-29] MEDS ORDERED: NEOMYCIN/POLYMYXIN/BACITRACIN 15 GM TUBE TOP SCH (21:00)
[2022-03-30] VITALS: BP 122/82
[2022-03-30 00:32] VITALS: BP 118/77
[2022-03-30] MEDS: ALBUTEROL/IPRATROPIUM 3 ML NEB NEB PRN ×2 (01:10→06:56)
[2022-03-30 04:00] VITALS: BP 125/72
[2022-03-30] MEDS: AMOXICILLIN 250 MG CAP PO SCH (05:48)
[2022-03-30 08:14] VITALS: BP 133/94
[2022-03-30 09:00] VITALS: BP 133/94
[2022-03-30] MEDS: GLUCOSAMINE PO SCH (09:00)
[2022-03-30] MEDS: CHONDROITIN PO SCH (09:00)
[2022-03-30] MEDS: FUROSEMIDE 40 MG TAB PO SCH (09:48)
[2022-03-30] MEDS: ARTIFICIAL TEARS (OPTH) 15 ML BTL OU SCH (09:48)
[2022-03-30] MEDS: POTASSIUM CHLORIDE 10MEQ EA PO SCH (09:48)
[2022-03-30] MEDS: PANTOPRAZOLE SOD 40 MG TABEC PO SCH (09:48)
[2022-03-30] MEDS: CARVEDILOL 3.125 MG TAB PO SCH (09:49)
[2022-03-30 11:35] VITALS: BP 119/69
[2022-03-30] MEDS ORDERED: AUGMENTIN 500-1 EACH PO (12:23)
[2022-03-30] MEDS ORDERED: HIPREX1 GM PO (12:29)
== END 2022-03-30 13:45 | disposition home or self-care (01) | DRG 659 ==
LOC: ER 15:03 → ERHOLD 17:45 → MED/SURG2 21:15
PROVIDERS: ADMIT Internal Medicine; ATTEND Internal Medicine
PROC: 0T9B80Z Drainage of Bladder with Drainage Device, Via Natural or Artificial Opening Endoscopic (ICD-10-PCS; principal; 2022-03-27 12:18)
PROC: 0T788DZ Dilation of Bilateral Ureters with Intraluminal Device, Via Natural or Artificial Opening Endoscopic (ICD-10-PCS; 2022-03-27 12:18)
DX: T83.511A Infection and inflammatory reaction due to indwelling urethral catheter, initial encounter (principal); A41.9 Sepsis, unspecified organism; R65.20 Severe sepsis without septic shock; N17.9 Acute kidney failure, unspecified; Z16.21 Resistance to vancomycin; N39.0 Urinary tract infection, site not specified; N31.9 Neuromuscular dysfunction of bladder, unspecified; R33.9 Retention of urine, unspecified; R31.0 Gross hematuria; R31.29 Other microscopic hematuria; N31.2 Flaccid neuropathic bladder, not elsewhere classified; I44.7 Left bundle-branch block, unspecified; I48.91 Unspecified atrial fibrillation; K21.9 Gastro-esophageal reflux disease without esophagitis; B96.1 Klebsiella pneumoniae [K. pneumoniae] as the cause of diseases classified elsewhere; I12.9 Hypertensive chronic kidney disease with stage 1 through stage 4 chronic kidney disease, or unspecified chronic kidney disease; E11.22 Type 2 diabetes mellitus with diabetic chronic kidney disease; E87.6 Hypokalemia; N18.30 Chronic kidney disease, stage 3 unspecified; B95.2 Enterococcus as the cause of diseases classified elsewhere; I25.10 Atherosclerotic heart disease of native coronary artery without angina pectoris; R80.9 Proteinuria, unspecified; F95.9 Tic disorder, unspecified; R53.81 Other malaise; Q54.8 Other hypospadias; Z87.440 Personal history of urinary (tract) infections; Z86.711 Personal history of pulmonary embolism; Z86.718 Personal history of other venous thrombosis and embolism; Z79.2 Long term (current) use of antibiotics; Z79.82 Long term (current) use of aspirin; Z79.899 Other long term (current) drug therapy; Z95.5 Presence of coronary angioplasty implant and graft; Z82.49 Family history of ischemic heart disease and other diseases of the circulatory system; Z86.11 Personal history of tuberculosis; Z87.01 Personal history of pneumonia (recurrent); Z87.828 Personal history of other (healed) physical injury and trauma; Z86.2 Personal history of diseases of the blood and blood-forming organs and certain disorders involving the immune mechanism; Z20.822 Contact with and (suspected) exposure to COVID-19
CPT/HCPCS: 0223U; 36415; 36569; 71045; 74176; 74420; 80048; 80053; 81001; 82948; 83605; 85025; 87040; 87086; 87186; 93005; 94640; 94760; 94799; 99252; 99284; C1758; J0696; J1100; J2001; J2250; J2270; J2405; J2765; J3010; J7030

== ENCOUNTER 2022-04-09 13:44 | Inpatient (IN) | payer MEDICARE ==
[~2022-04-09] VITALS: Ht 174 cm; Wt 78.5 kg
[~2022-04-09 13:44] MED LIST changes: +AUGMENTIN 500-1 EACH PO; +CARVEDILOL3.125 MG PO; +DEXAMETHASONE SOD PHOS INJ 4 MG/ML SDV ONE; +GLUCOSAMINE &1 EACH PO; +HIPREX1 GM PO; +KETOROLAC TROMETHAMINE 30 MG/ML VIAL ONE; +OMEPRAZOLE20 M2; +OMEPRAZOLE40 MG PO; +ONDANSETRON HCL INJ 2MG/ML 2ML 2 MG/ML VIAL ONE; +POTASSIUM CHLO10 ME1 PO; +POVIDONE IODINE 0.05% 0.05 % ML PO ONE; +PROPOFOL IV EMULSION 10 MG/ML 20 ML VIAL ONE; +REFRESH RELIEVA10 ML OU; +SEVOFLURANE INHAL SOLN 250 ML PEN BTL ONE; +Vancomycin IV 1 GM VIAL ONE
[2022-04-09] MEDS ORDERED: HYDROCODONE/APAP 5MG-325MG TAB PO ONE (14:30)
[2022-04-09] MEDS ORDERED: HYDROCODONE/APAP 5MG-325MG TAB ONE (14:46)
[2022-04-09 15:57] LABS: BASOPHILS # (AUTO) 0.1 (0.0-0.1); BASOPHILS % 0.5 % (0.0-1.0); EOSINOPHILS # (AUTO) 0.5 (0.0-0.4); EOSINOPHILS % 5.5 % (0.0-6.0); HEMATOCRIT 36.2 % (38.2-49.6); HEMOGLOBIN 10.6 g/dL (14.0-18.0); LYMPHOCYTES # (AUTO) 1.9 (1.0-3.2); MEAN CORPUSCULAR HEMOGLOBIN 28.4 pg (28-32); MEAN CORPUSCULAR HGB CONC 29.3 g/dL (31-35); MEAN CORPUSCULAR VOLUME 97.1 fL (81-99); MONOCYTES % 9.7 % (4.4-11.3); NEUTROPHILS # (AUTO) 6.4 (2.1-6.9); NEUTROPHILS % 65.1 % (38.7-80.0); PLATELET COUNT 248 x10e3/uL (140-360); RED BLOOD COUNT 3.73 x10e6/uL (4.3-5.7); RED CELL DISTRIBUTION WIDTH 13.7 % (11.7-14.4)
[2022-04-09 16:10] LABS: ALBUMIN/GLOBULIN RATIO 0.8 (0.8-2.0); ANION GAP 11.2 mmol/L (8-16); CALCIUM 8.6 mg/dL (8.4-10.2); CREATININE, SERUM 0.96 mg/dL (0.72-1.25); POTASSIUM 4.2 mmol/L (3.5-5.1)
[2022-04-09] MEDS ORDERED: ONDANSETRON HCL INJ 2MG/ML 2ML 2 MG/ML VIAL IV PRN (16:15)
[2022-04-09] MEDS: SODIUM CHLORIDE 0.9% 1000ML 1,000 ML IV SCH (16:30)
[2022-04-09 16:47] LABS: INR 1.04; PROTHROMBIN TIME 13.8 seconds (11.9-14.5)
[2022-04-09 16:48] LABS: PARTIAL THROMBOPLASTIN TIME 38.3 seconds (23.8-35.5)
[2022-04-09] MEDS: Morphine 4mg INJECTION 4 MG/ML INJ IV PRN (17:37)
[2022-04-09 17:51] LABS: COLOR,URINE YELLOW (YELLOW)
[2022-04-09 17:52] LABS: CLARITY,URINE CLEAR (CLEAR); KETONES,URINE NEGATIVE (NEGATIVE); LEUKOCYTE ESTERASE ,URINE TRACE (NEGATIVE); NITRITE,URINE NEGATIVE (NEGATIVE); PROTEIN,URINE DIPSTICK 2+ (NEGATIVE)
[2022-04-09 17:53] LABS: URINE UROBILINOGEN 0.2 mg/dL (0.2 - 1)
[2022-04-09] MEDS ORDERED: HEPARIN SOD (PORCINE) 5,000 UNIT/ML VIAL SC ONE (18:00)
[2022-04-09 18:02] VITALS: BP 132/75
[2022-04-09 18:08] LABS: BACTERIA,URINE MODERATE /HPF; EPITHELIAL CELLS,URINE RARE /LPF; RBC,URINE 0-5 /HPF (0-5)
[2022-04-09 18:09] LABS: AMORPHOUS SEDIMENT,URINE MODERATE (FEW)
[2022-04-09 18:16] VITALS: BP 132/75
[2022-04-09 18:39] VITALS: BP 132/75
[2022-04-09] MEDS ORDERED: ACETAMINOPHEN 325 MG TAB PO PRN (19:45)
[2022-04-09 20:00] VITALS: BP 112/60
[2022-04-09] MEDS: GLYCERIN OU SCH (21:00)
[2022-04-09] MEDS: CARBOXYMETHYLCELLULOS OU SCH (21:00)
[2022-04-09] MEDS: [UNRECOGNIZED DRUG - OTHER] OU SCH (21:00)
[2022-04-10] VITALS (8 sets, daily range): BP systolic 110–130; BP diastolic 63–78
[2022-04-10] MEDS: SODIUM CHLORIDE 0.9% 1000ML 1,000 ML IV SCH ×2 (05:54→13:10)
[2022-04-10 06:13] LABS: BASOPHILS # (AUTO) 0.1 (0.0-0.1); BASOPHILS % 0.7 % (0.0-1.0); EOSINOPHILS # (AUTO) 0.6 (0.0-0.4); HEMATOCRIT 28.8 % (38.2-49.6); LYMPHOCYTES # (AUTO) 1.8 (1.0-3.2); LYMPHOCYTES % 22.1 % (18.0-39.1); MEAN CORPUSCULAR HEMOGLOBIN 28.5 pg (28-32); MEAN CORPUSCULAR HGB CONC 31.3 g/dL (31-35); MEAN CORPUSCULAR VOLUME 91.1 fL (81-99); MONOCYTES % 11.8 % (4.4-11.3); NEUTROPHILS # (AUTO) 4.8 (2.1-6.9); NEUTROPHILS % 57.9 % (38.7-80.0); PLATELET COUNT 227 x10e3/uL (140-360); RED BLOOD COUNT 3.16 x10e6/uL (4.3-5.7); RED CELL DISTRIBUTION WIDTH 13.9 % (11.7-14.4)
[2022-04-10 06:36] LABS: ANION GAP 11.2 mmol/L (8-16); CALCIUM 8.3 mg/dL (8.4-10.2); CREATININE, SERUM 0.92 mg/dL (0.72-1.25); POTASSIUM 4.2 mmol/L (3.5-5.1)
[2022-04-10] MEDS: FUROSEMIDE 20 MG TAB PO SCH (08:47)
[2022-04-10] MEDS: CARVEDILOL 3.125 MG TAB PO SCH ×2 (08:47→16:53)
[2022-04-10] MEDS: PANTOPRAZOLE SOD 40 MG TABEC PO SCH (08:47)
[2022-04-10] MEDS: [UNRECOGNIZED DRUG - OTHER] OU SCH ×3 (08:47→20:48)
[2022-04-10] MEDS: CARBOXYMETHYLCELLULOS OU SCH ×3 (08:47→20:48)
[2022-04-10] MEDS: POTASSIUM CHLORIDE 10MEQ EA PO SCH (08:47)
[2022-04-10] MEDS: [UNRECOGNIZED DRUG - OTHER] PO SCH (08:47)
[2022-04-10] MEDS: AMOXICILLIN/CLAVULANATE K 500 MG TAB PO SCH ×2 (08:47→16:53)
[2022-04-10] MEDS: GLYCERIN OU SCH ×3 (08:47→20:48)
[2022-04-10] MEDS ORDERED: SODIUM CHLORIDE 0.9% 250ML 250 ML ONE (11:28)
[2022-04-10] MEDS ORDERED: BUPIVACAINE HCL 0.5% INJ 30 ML VIAL INJ ONE (11:44)
[2022-04-10] MEDS ORDERED: Vancomycin IV 1 GM VIAL ONE (11:44)
[2022-04-10] MEDS ORDERED: ONDANSETRON HCL INJ 2MG/ML 2ML 2 MG/ML VIAL IV PRN (11:45)
[2022-04-10] MEDS ORDERED: FENTANYL CITRATE/PF 100MCG/2 ML INJ ONE ×2 (12:36→12:39)
[2022-04-10] MEDS: Morphine 4mg INJECTION 4 MG/ML INJ IV PRN (15:34)
[2022-04-10] MEDS: Vancomycin IV 1 GM in SODIUM CHLORIDE 0.9% 250ML 250 ML IV SCH (20:30)
[2022-04-11] VITALS (8 sets, daily range): BP systolic 106–123; BP diastolic 55–87
[2022-04-11 06:00] LABS: BASOPHILS % 0.1 % (0.0-1.0); HEMATOCRIT 26.3 % (38.2-49.6); HEMOGLOBIN 8.4 g/dL (14.0-18.0); LYMPHOCYTES # (AUTO) 0.9 (1.0-3.2); LYMPHOCYTES % 10.9 % (18.0-39.1); MEAN CORPUSCULAR HEMOGLOBIN 29.1 pg (28-32); MEAN CORPUSCULAR HGB CONC 31.9 g/dL (31-35); MONOCYTES # (AUTO) 0.8 (0.2-0.8); MONOCYTES % 9.5 % (4.4-11.3); NEUTROPHILS # (AUTO) 6.5 (2.1-6.9); NEUTROPHILS % 78.9 % (38.7-80.0); PLATELET COUNT 218 x10e3/uL (140-360); RED BLOOD COUNT 2.89 x10e6/uL (4.3-5.7); RED CELL DISTRIBUTION WIDTH 13.7 % (11.7-14.4)
[2022-04-11 06:29] LABS: ALBUMIN 2.5 g/dL (3.5-5.0); ALBUMIN/GLOBULIN RATIO 0.7 (0.8-2.0); ANION GAP 13.2 mmol/L (8-16); CALCIUM 8.4 mg/dL (8.4-10.2); CREATININE, SERUM 1.07 mg/dL (0.72-1.25)
[2022-04-11 06:43] LABS: POTASSIUM 5.2 mmol/L (3.5-5.1)
[2022-04-11] MEDS: Vancomycin IV 1 GM in SODIUM CHLORIDE 0.9% 250ML 250 ML IV SCH (08:58)
[2022-04-11] MEDS: AMOXICILLIN/CLAVULANATE K 500 MG TAB PO SCH ×2 (08:58→18:15)
[2022-04-11] MEDS: CARVEDILOL 3.125 MG TAB PO SCH ×2 (08:58→18:15)
[2022-04-11] MEDS: FUROSEMIDE 20 MG TAB PO SCH (08:58)
[2022-04-11] MEDS: PANTOPRAZOLE SOD 40 MG TABEC PO SCH (08:58)
[2022-04-11] MEDS: [UNRECOGNIZED DRUG - OTHER] OU SCH ×3 (09:00→20:22)
[2022-04-11] MEDS: GLYCERIN OU SCH ×3 (09:00→20:22)
[2022-04-11] MEDS: [UNRECOGNIZED DRUG - OTHER] PO SCH (09:00)
[2022-04-11] MEDS: CARBOXYMETHYLCELLULOS OU SCH ×3 (09:00→20:22)
[2022-04-11] MEDS: POTASSIUM CHLORIDE 10MEQ EA PO SCH (09:00)
[2022-04-12] VITALS (8 sets, daily range): BP systolic 101–114; BP diastolic 52–70
[2022-04-12 07:05] LABS: BASOPHILS % 0.4 % (0.0-1.0); EOSINOPHILS # (AUTO) 0.2 (0.0-0.4); EOSINOPHILS % 1.8 % (0.0-6.0); HEMATOCRIT 25.8 % (38.2-49.6); LYMPHOCYTES % 22.1 % (18.0-39.1); MEAN CORPUSCULAR HEMOGLOBIN 28.7 pg (28-32); MEAN CORPUSCULAR VOLUME 92.5 fL (81-99); MONOCYTES % 11.4 % (4.4-11.3); NEUTROPHILS # (AUTO) 5.8 (2.1-6.9); NEUTROPHILS % 63.9 % (38.7-80.0); PLATELET COUNT 231 x10e3/uL (140-360); RED BLOOD COUNT 2.79 x10e6/uL (4.3-5.7); RED CELL DISTRIBUTION WIDTH 14.1 % (11.7-14.4)
[2022-04-12] MEDS: GLYCERIN OU SCH ×3 (09:00→21:00)
[2022-04-12] MEDS: CARBOXYMETHYLCELLULOS OU SCH ×3 (09:00→21:00)
[2022-04-12] MEDS: [UNRECOGNIZED DRUG - OTHER] OU SCH ×3 (09:00→21:00)
[2022-04-12] MEDS: POTASSIUM CHLORIDE 10MEQ EA PO SCH (09:00)
[2022-04-12] MEDS: [UNRECOGNIZED DRUG - OTHER] PO SCH (09:00)
[2022-04-12] MEDS: AMOXICILLIN/CLAVULANATE K 500 MG TAB PO SCH ×2 (10:09→18:21)
[2022-04-12] MEDS: CARVEDILOL 3.125 MG TAB PO SCH ×2 (10:10→18:21)
[2022-04-12] MEDS: FUROSEMIDE 20 MG TAB PO SCH (10:10)
[2022-04-12] MEDS: ASPIRIN 325 MG TAB PO SCH (10:10)
[2022-04-12] MEDS: PANTOPRAZOLE SOD 40 MG TABEC PO SCH (10:10)
[2022-04-13 00:13] VITALS: BP 118/60
[2022-04-13 04:00] VITALS: BP 110/67
[2022-04-13 08:46] VITALS: BP 110/67
[2022-04-13] MEDS: GLYCERIN OU SCH (09:00)
[2022-04-13] MEDS: [UNRECOGNIZED DRUG - OTHER] PO SCH (09:00)
[2022-04-13] MEDS: [UNRECOGNIZED DRUG - OTHER] OU SCH (09:00)
[2022-04-13] MEDS: CARBOXYMETHYLCELLULOS OU SCH (09:00)
[2022-04-13 09:16] VITALS: BP 111/64
[2022-04-13] MEDS: POTASSIUM CHLORIDE 10MEQ EA PO SCH (09:55)
[2022-04-13] MEDS: FUROSEMIDE 20 MG TAB PO SCH (09:55)
[2022-04-13] MEDS: CARVEDILOL 3.125 MG TAB PO SCH (09:55)
[2022-04-13] MEDS: PANTOPRAZOLE SOD 40 MG TABEC PO SCH (09:56)
[2022-04-13] MEDS: ASPIRIN 325 MG TAB PO SCH (09:56)
[2022-04-13] MEDS: AMOXICILLIN/CLAVULANATE K 500 MG TAB PO SCH (09:56)
[2022-04-13] MEDS ORDERED: ASPIRIN EC81 MG PO (10:49)
[2022-04-13] MEDS ORDERED: FUROSEMIDE INJ 10 MG/ML 4 ML VIAL IV ONE (11:00)
[2022-04-13 12:13] VITALS: BP 108/77
[2022-04-13] MEDS ORDERED: ONDANSETRON HCL 4 MG ORAL DISINTEGRATING TAB PO PRN (13:00)
[2022-04-13] MEDS ORDERED: ENOXAPARIN SOD INJ 40 MG/0.4 ML SYR SC SCH (17:00)
== END 2022-04-13 14:24 | DRG 480 ==
LOC: ER 13:51 → ERHOLD 16:13 → MED/SURG2 17:48
PROVIDERS: ADMIT Internal Medicine; ATTEND Internal Medicine
PROC: 8E0ZXY6 Isolation (ICD-10-PCS; principal; 2022-04-09)
PROC: 0QS736Z Reposition Left Upper Femur with Intramedullary Internal Fixation Device, Percutaneous Approach (ICD-10-PCS; 2022-04-10)
DX: S72.002A Fracture of unspecified part of neck of left femur, initial encounter for closed fracture (principal); I50.21 Acute systolic (congestive) heart failure; U07.1 COVID-19; N39.0 Urinary tract infection, site not specified; Y92.099 Unspecified place in other non-institutional residence as the place of occurrence of the external cause; I25.10 Atherosclerotic heart disease of native coronary artery without angina pectoris; D64.9 Anemia, unspecified; E78.5 Hyperlipidemia, unspecified; N31.9 Neuromuscular dysfunction of bladder, unspecified; I11.0 Hypertensive heart disease with heart failure; K21.9 Gastro-esophageal reflux disease without esophagitis; I44.7 Left bundle-branch block, unspecified; W05.0XXA Fall from non-moving wheelchair, initial encounter; Z20.822 Contact with and (suspected) exposure to COVID-19; Z95.5 Presence of coronary angioplasty implant and graft; Z99.3 Dependence on wheelchair
CPT/HCPCS: 36415; 70450; 71045; 72170; 72192; 76000; 80048; 80053; 81001; 82948; 84132; 85025; 85610; 85730; 86850; 86900; 93005; 93306; 94799; 99284; C1713; J1100; J1644; J1885; J1940; J2270; J2405; J3010; J3370; J7030; J7050

== ENCOUNTER 2022-06-05 10:27 | Emergency (ER) | payer MEDICARE ==
[~2022-06-05] VITALS: Ht 174 cm; Wt 78.5 kg
[~2022-06-05 10:27] MED LIST changes: +ASPIRIN EC81 MG PO; -DEXAMETHASONE SOD PHOS INJ 4 MG/ML SDV ONE; -KETOROLAC TROMETHAMINE 30 MG/ML VIAL ONE; -ONDANSETRON HCL INJ 2MG/ML 2ML 2 MG/ML VIAL ONE; -POVIDONE IODINE 0.05% 0.05 % ML PO ONE; -PROPOFOL IV EMULSION 10 MG/ML 20 ML VIAL ONE; -SEVOFLURANE INHAL SOLN 250 ML PEN BTL ONE; -Vancomycin IV 1 GM VIAL ONE
[2022-06-05 11:54] LABS: CLARITY,URINE TURBID (CLEAR); COLOR,URINE YELLOW (YELLOW)
[2022-06-05 11:55] LABS: KETONES,URINE NEGATIVE (NEGATIVE); LEUKOCYTE ESTERASE ,URINE LARGE (NEGATIVE); NITRITE,URINE NEGATIVE (NEGATIVE); PROTEIN,URINE DIPSTICK 1+ (NEGATIVE); URINE UROBILINOGEN 0.2 mg/dL (0.2 - 1)
[2022-06-05 12:09] LABS: BACTERIA,URINE MODERATE /HPF; WBC,URINE (MAN) 21-50 /HPF (0-5)
[2022-06-05 12:10] LABS: EPITHELIAL CELLS,URINE FEW /LPF
[2022-06-05] MEDS ORDERED: MACROBID 100 M100 MG PO (12:29)
[2022-06-05] MEDS ORDERED: CEFDINIR300 MG PO (12:29)
== END 2022-06-05 12:30 | disposition home or self-care (01) ==
LOC: ER 10:31
DX: Z46.6 Encounter for fitting and adjustment of urinary device (principal); N39.0 Urinary tract infection, site not specified; I10 Essential (primary) hypertension; K21.9 Gastro-esophageal reflux disease without esophagitis; Z95.5 Presence of coronary angioplasty implant and graft
CPT/HCPCS: 81001; 87086; 87186; 99283